=== PATIENT | female | born 1960 | race African-American/Black ===

== ENCOUNTER 2019-04-06 09:44 | Inpatient (IN) | payer OTHER ==
[2019-04-06 12:11] VITALS: BMI 24.6
--- NOTE | 2019-04-06 12:52 | HP ---
CIWA Score Nausea/Vomitin-No Nausea/No Vomiting Muscle Tremors: None Anxiety: 4-Mod. Anxious/Guarded Agitation: 4-Moderately Restless Paroxysmal Sweats: 2 Orientation: 0-Oriented Tacttile Disturbances: 2-Mild Itch/Numbness/Burn Auditory Disturbances: 2-Mild Harshness/Frighten Visual Disturbances: 0-None Headache: 0-None Present CIWA-Ar Total Score: 14 - Admission Criteria OASAS Guidelines: Admission for Medically Managed Detox: Requires at least one of the followin. CIWA greater than 12 2. Seizures within the past 24 hours 3. Delirium tremens within the past 24 hours 4. Hallucinations within the past 24 hours 5. Acute intervention needed for co occurring medical disorder 6. Acute intervention needed for co occurring psychiatric disorder 7. Severe withdrawal that cannot be handled at a lower level of care (continued vomiting, continued diarrhea, abnormal vital signs) requiring intravenous medication and/or fluids 8. Admission ROS S - HPI Allergies/Adverse Reactions: Allergies Allergy/AdvReac Type Severity Reaction Status Date / Time No Known Allergies Allergy Verified 04/06/19 12:01 History of Present Illness: 58 y.o. female pt requesting assistance w/ etoh use , reports 3 x 6-pk beer daily since March 2019 , relapsed after 12 yr sobriety while living in [facility] , moved to [facility] 2 o ago at the request of her adult dtr , now homeless x 3 days " she chose her BF over me " , went to [facility] depression , reports feeling overwhelmed and grieving the loss of family ( mother , brother , SO ) within the last 12 mo . Reports she starts drinking in the mornings, denies tremors , blackouts , seizures . Prior to sobriety - crack cocaine cocaine - current use 3 days ago 100 $/day tobacco - 1 ppd . PMHX : HTN , R THR 2/2 OA , C-sx x 2 , has 3 adult children PSych : depression denies SI / HI hospital d/c received : CXR negative EKG Nl 04/06/19 QTC 415 ms - Ebola screening Have you traveled outside of the country in the last 21 days: No (N) Have you had contact with anyone from an Ebola affected area: No Do you have a fever: No - Review of Systems Constitutional: Loss of Appetite EENT: reports: Other (missing teeth) Respiratory: reports: No Symptoms reported Cardiac: reports: See HPI (went to ER w/ Chest pain , now slightly better) GI: reports: Poor Appetite : reports: No Symptoms Reported Musculoskeletal: reports: Joint Pain (left leg reports h/o muscle " pulled " from lifting SO December 2018 , no surgery recommended , has had numbness , tinglin in the left thigh since , went to [facility] .) Integumentary: reports: No Symptoms Reported Neuro: reports: No Symptoms reported Endocrine: reports: See HPI (borderline DM) Psychiatric: reports: Orientated x3, Agitated, Anxious, Depressed Patient History - Smoking Cessation Smoking history: Current every day smoker Have you smoked in the past 12 months: Yes Hx Chewing Tobacco Use: No Initiated information on smoking cessation: No - Substances abused Crack Substance route: Inhalation Frequency: Daily Amount used: 100 dollars Age of first use: 25 Date of last use: 04/03/19 Alcohol Substance route: Oral Frequency: Daily Amount used: at least 2 of 6 packs of beer. Age of first use: 19 Date of last use: 04/03/19 Family Disease History - Family Disease History Family Disease History: Diabetes: Father (lung CA ), Sister (youngest sister DMI), CA: Father, Mother (stomach CA ), Other: Father, Mother, Brother (d. HTN , esrd on HD ), Sister, Son (1 son A & W ), Daughter (2 dtr A & W ) Admission Physical Exam BHS - Vital Signs Vital Signs: Vital Signs - 24 hr 04/06/19 12:00 Temperature 97.6 F Pulse Rate 75 Respiratory 16 Rate Blood Pressure 187/97 H - Physical General Appearance: Yes: Mild Distress, Anxious HEENTM: Yes: EOMI, Hearing grossly Normal, Normocephalic, Normal Voice, Other ( poor dentition, many missing teeth) Respiratory: Yes: Lungs Clear, Normal Breath Sounds, No Respiratory Distress, No Accessory Muscle Use Neck: Yes: No masses,lesions,Nodules, Trachea in good position Cardiology: Yes: Regular Rhythm, Regular Rate, S1, S2 Abdominal: Yes: Non Tender, Soft Back: Yes: Normal Inspection Musculoskeletal: Yes: Gait Steady Extremities: Yes: Non-Tender Neurological: Yes: Alert, Motor Strength 5/5, Normal Mood/Affect Integumentary: Yes: Warm - Addiitonal Findings: CBC, BMP reviewed - re-ordered 2/2 elevated WBC 12.8 and glucose 258 - Diagnostic (1) Alcohol abuse Current Visit: Yes Status: Acute (2) Cocaine abuse Current Visit: Yes Status: Acute (3) Nicotine dependence Current Visit: Yes Status: Chronic Qualifiers: Nicotine product type: cigarettes Breathalyzer - Breathalyzer Breathalyzer: 0 Urine Drug Screen - Test Device Lot number: [id number] Expiration date: 12/29/20 - Control Is test valid?: Yes - Results Drug screen NEGATIVE: No Urine drug screen results: ROSALEE-Cocaine Inpatient Rehab Admission - Rehab Decision to Admit Inpatient rehab admission?: No
[2019-04-06] MEDS ORDERED: MENTHOL/PHENOL 1 EACH UD MM PRN (14:46)
[2019-04-06] MEDS ORDERED: BISMUTH SUBSALICYLATE 262 MG/15 ML BTL PO PRN (14:46)
[2019-04-06] MEDS ORDERED: MAG HYDROX/AL HYDROX/SIMETH 30 ML UNIT-DOSE CUP PO PRN (14:46)
[2019-04-06] MEDS ORDERED: MAGNESIUM CITRATE 300 ML BOTTLE PO PRN (14:46)
[2019-04-06] MEDS ORDERED: MAGNESIUM HYDROX 2400MG/30ML ORAL SUSPENSION 30 ML CUP PO PRN (14:46)
[2019-04-06] MEDS ORDERED: ACETAMINOPHEN 325 MG TABLET (FP) PO PRN ×2 (14:46)
[2019-04-06] MEDS ORDERED: hydrOXYzine PAMOATE 25 MG CAPSULE (FP) PO PRN (14:46)
[2019-04-06] MEDS ORDERED: chlordiazePOXIDE HCL 10 MG CAPSULE PO PRN (14:48)
[2019-04-06] MEDS: NICOTINE 14 MG/24 HOURS TOPICAL PATCH TD SCH (15:44)
[2019-04-06] MEDS ORDERED: METOPROLOL TARTRATE 25 MG TABLET (FP) PO ONE (16:30)
[2019-04-06] MEDS ORDERED: cloNIDine HCL 0.1 MG TABLET PO PRN (18:12)
[2019-04-06] MEDS: chlordiazePOXIDE HCL 25 MG CAPSULE PO SCH (21:40)
[2019-04-06] MEDS: THIAMINE HCL 100 MG TABLET (FP) PO SCH (21:40)
[2019-04-07] MEDS: chlordiazePOXIDE HCL 25 MG CAPSULE PO SCH ×3 (06:03→22:50)
[2019-04-07] MEDS: INSULIN SLIDING SCALE (NOVOLOG) 1 VIAL SQ SCH ×2 (08:36→17:01)
[2019-04-07 10:24] LABS: BASO % 0.8 % (0-2.0); HEMATOCRIT 38.5 % (32.4-45.2); HEMOGLOBIN 12.6 GM/dL (10.7-15.3); LYMPH % 44.8 % (8-40); MCH 28.3 pg (25.7-33.7); MCHC 32.7 g/dl (32.0-36.0); MEAN CELL VOLUME 86.5 fl (80-96); MEAN PLT VOLUME 9.3 fl (7.5-11.1); MONO % 6.2 % (3.8-10.2); NEUT % 46.2 % (42.8-82.8); PLATELET COUNT 374 K/MM3 (134-434); RBC 4.45 M/mm3 (3.60-5.2); RDW 13.3 % (11.6-15.6); WHITE BLOOD COUNT 8.7 K/mm3 (4.0-10.0)
--- NOTE | 2019-04-07 10:27 | PN ---
S CIWA - CIWA Score Nausea/Vomitin-No Nausea/No Vomiting Muscle Tremors: 2 Anxiety: 3 Agitation: 0-Normal Activity Paroxysmal Sweats: 3 Orientation: 0-Oriented Tacttile Disturbances: 1-Very Mild Itch/Numbness Auditory Disturbances: 0-None Visual Disturbances: 0-None Headache: 2-Mild CIWA-Ar Total Score: 11 BHS Progress Note (SOAP) Subjective: c/o sweats, anxiety, and headache. Objective: 04/07/19 10:29 Vital Signs 04/07/19 04/07/19 04/07/19 03:30 06:00 06:30 Temperature 97.2 F L Pulse Rate 57 L Respiratory 18 18 18 Rate Blood Pressure 122/68 04/07/19 08:54 Temperature 97.8 F Pulse Rate 67 Respiratory 18 Rate Blood Pressure 121/71 Labs pending. Assessment: 04/07/19 10:29 AOX3, in no acute distress. Full ROM, ambulating in the unit. Withdrawal symptoms. Plan: continue detox.
[2019-04-07 10:29] LABS: BILIRUBIN,TOTAL 0.3 mg/dL (0.2-1); BLOOD UREA NITROGEN 12.2 mg/dL (7-18); CALCIUM 8.8 mg/dL (8.5-10.1); POTASSIUM 4.1 mmol/L (3.5-5.1); TOT PROT 5.7 g/dl (6.4-8.2)
[2019-04-07] MEDS: PRENATAL VITAMINS W/ FOLIC ACID TABLET (FP) PO SCH (11:05)
[2019-04-07] MEDS: NICOTINE 14 MG/24 HOURS TOPICAL PATCH TD SCH (11:07)
--- NOTE | 2019-04-07 16:25 | CONSULT ---
[facility] Psychiatric Consult - Data Date of interview: 04/07/19 Admission source: [facility] Identifying data: First admission to [facility] for this 58 y/o female self-referred for detoxification (alcohol, cocaine). Interviewed at [address] [place] [address]. Patient is single, mother of three, homeless, unemployed and supported on SSI benefits. Substance Abuse History: Discussed with the patient. Details in current [facility] report as follows : Smoking history: Current every day smoker. Have you smoked in the past 12 months: Yes. Hx Chewing Tobacco Use: No. Initiated information on smoking cessation: No. - Substances abused. Crack. Substance route: Inhalation. Frequency: Daily. Amount used: 100 dollars. Age of first use: 25. Date of last use: 04/03/19. Alcohol. Substance route: Oral. Frequency : Daily. Amount used: at least 2 of 6 packs of beer. Age of first use: 19. Date of last use: 04/03/19 Medical History: Remarkable for hypertension, diabetes mellitus (questionable historian), recent hip replacement (right) and a history of two sections. Psychiatric History: Patient denies history of psychiatric hospitalizations, OPD care or suicide attempts. Physical/Sexual Abuse/Trauma History: No reported history of abuse. Patient reports dysphoria from going through multiple losses in the family (deaths of mother, a brother, common-law ) in a relatively short period of time. Common-law spouse passed in January 2019 from cancer. Additional Comment: Urine drug screen results: ROSALEE-Cocaine. Noted. Mental Status Exam - Mental Status Exam Alert and Oriented to: Time, Place, Person Cognitive Function: Good Patient Appearance: Well Groomed (missing teeth) Mood: Sad, Withdrawn Affect: Mood Congruent, Constricted Patient Behavior: Fatigued, Cooperative Speech Pattern: Clear, Appropriate Voice Loudness: Normal Thought Process: Goal Oriented Thought Disorder: Not Present Hallucinations: Denies Suicidal Ideation: Denies Homicidal Ideation: Denies Insight/Judgement: Fair Sleep: Poorly, Difficulty falling asleep Appetite: Fair Gait/Station: Normal Psychiatric Findings - Problem List ([place] 1, 2,3) (1) Bereavement Current Visit: Yes Status: Chronic (2) Alcohol abuse Current Visit: Yes Status: Chronic (3) Cocaine abuse Current Visit: Yes Status: Chronic (4) Nicotine dependence Current Visit: Yes Status: Chronic Qualifiers: Nicotine product type: cigarettes (5) Substance induced mood disorder Current Visit: Yes Status: Chronic (6) Insomnia Current Visit: Yes Status: Acute - Initial Treatment Plan Initial Treatment Plan: Psychoeducation. Support. Counseling. Detoxification. Insomnia is addressed with melatonin at bedtime (patient agrees). Empathy provided. Observation.
[2019-04-07] MEDS ORDERED: INSULIN SLIDING SCALE (NOVOLOG) 1 VIAL SQ ONE (16:37)
[2019-04-07] MEDS: THIAMINE HCL 100 MG TABLET (FP) PO SCH (22:50)
[2019-04-08] MEDS: chlordiazePOXIDE 5 MG CAPSULE PO SCH ×3 (05:40→22:12)
[2019-04-08] MEDS: INSULIN SLIDING SCALE (NOVOLOG) 1 VIAL SQ SCH ×2 (06:45→17:20)
[2019-04-08] MEDS: NICOTINE 14 MG/24 HOURS TOPICAL PATCH TD SCH (10:28)
[2019-04-08] MEDS: PRENATAL VITAMINS W/ FOLIC ACID TABLET (FP) PO SCH (10:28)
--- NOTE | 2019-04-08 11:32 | PN ---
S CIWA - CIWA Score Nausea/Vomitin-Mild Nausea/No Vomiting Muscle Tremors: 2 Anxiety: 2 Agitation: 2 Paroxysmal Sweats: 2 Orientation: 0-Oriented Tacttile Disturbances: 0-None Auditory Disturbances: 0-None Visual Disturbances: 0-None Headache: 0-None Present CIWA-Ar Total Score: 9 BHS Progress Note (SOAP) Subjective: Medication working well as per patient, refused to elaborate regarding sxs Objective: 04/08/19 11:28 Last Vital Signs Temp Pulse Resp BP Pulse Ox 97.7 F 68 18 149/88 04/08/19 09:24 04/08/19 09:24 04/08/19 09:24 04/08/19 09:24 Elevated b/p 149/88 (has htn, on clonidine prn) Laboratory Tests 04/07/19 04/07/19 04/07/19 08:00 08:00 08:00 WBC 8.7 RBC 4.45 Hgb 12.6 Hct 38.5 MCV 86.5 MCH 28.3 MCHC 32.7 RDW 13.3 Plt Count 374 MPV 9.3 Absolute Neuts (auto) 4.0 Neutrophils % 46.2 Lymphocytes % 44.8 H Monocytes % 6.2 Eosinophils % 2.0 Basophils % 0.8 Nucleated RBC % 0 Sodium 141 Potassium 4.1 Chloride 102 Carbon Dioxide 27 Anion Gap 12 BUN 12.2 Creatinine 1.0 Est GFR (CKD-EPI)AfAm 72.93 Est GFR (CKD-EPI)NonAf 62.93 POC Glucometer Random Glucose 422 H* Calcium 8.8 Total Bilirubin 0.3 AST 55 H ALT 76 H Alkaline Phosphatase 101 Total Protein 5.7 L Albumin 3.0 L RPR Titer Nonreactive 04/07/19 04/08/19 16:31 06:23 WBC RBC Hgb Hct MCV MCH MCHC RDW Plt Count MPV Absolute Neuts (auto) Neutrophils % Lymphocytes % Monocytes % Eosinophils % Basophils % Nucleated RBC % Sodium Potassium Chloride Carbon Dioxide Anion Gap BUN Creatinine Est GFR (CKD-EPI)AfAm Est GFR (CKD-EPI)NonAf POC Glucometer 359 330 Random Glucose Calcium Total Bilirubin AST ALT Alkaline Phosphatase Total Protein Albumin RPR Titer Labs reviewed: elevated glucose level (has DM), mildly elevated AST/ALT Assessment: 04/08/19 11:35 Withdrawal sxs Noted with elevated glucose level r/t DM and HTN Plan: Continue detox Encouraged PO water intake DM with hyperglycemia: monitor fingerstick glucose, continue insulin, encourage diabetic diet HTN: start norvasc 5mg PO daily, continue clonidine if b/p > 140/90 Mildly elevated AST/ALT: most likely r/t alcoholism, encouraged abstinence from alcohol and all illicit substances, follow up with PCP for monitoring
[2019-04-08] MEDS: THIAMINE HCL 100 MG TABLET (FP) PO SCH (22:12)
[2019-04-08] MEDS: MELATONIN 5 MG TABLETS PO PRN (22:12)
[2019-04-08] MEDS: IBUPROFEN 400 MG TABLET (FP) PO PRN (22:14)
[2019-04-09] MEDS ORDERED: chlordiazePOXIDE HCL 10 MG CAPSULE PO PRN
[2019-04-09] MEDS: chlordiazePOXIDE HCL 10 MG CAPSULE PO SCH ×3 (07:15→22:10)
[2019-04-09] MEDS: INSULIN SLIDING SCALE (NOVOLOG) 1 VIAL SQ SCH ×2 (07:18→17:00)
[2019-04-09] MEDS ORDERED: INSULIN SLIDING SCALE (NOVOLOG) 1 VIAL SQ ONE ×2 (07:19→16:56)
--- NOTE | 2019-04-09 10:10 | PN ---
S CIWA - CIWA Score Nausea/Vomitin-No Nausea/No Vomiting Muscle Tremors: 1-None Visible, but [place] Anxiety: 1-Mildly Anxious Agitation: 1-Slight > Activity Paroxysmal Sweats: No Perspiration Orientation: 0-Oriented Tacttile Disturbances: 0-None Auditory Disturbances: 0-None Visual Disturbances: 0-None Headache: 0-None Present CIWA-Ar Total Score: 3 BHS Progress Note (SOAP) Subjective: Patient has minimal complaints. She is doing well and wants to follow up and go to rehab once she completes detox. Objective: 04/09/19 10:06 BP:143/71 P:71 R:18 T:96.8 Laboratory 04/07/19 04/07/19 04/07/19 08:00 08:00 08:00 WBC 8.7 K/mm3 K/mm3 (4.0-10.0) RBC 4.45 M/mm3 M/mm3 (3.60-5.2) Hgb 12.6 GM/dL GM/dL (10.7-15.3) Hct 38.5 % % (32.4-45.2) MCV 86.5 fl fl (80-96) MCH 28.3 pg pg (25.7-33.7) MCHC 32.7 g/dl g/dl (32.0-36.0) RDW 13.3 % % (11.6-15.6) Plt Count 374 K/MM3 K/MM3 (134-434) MPV 9.3 fl fl (7.5-11.1) Absolute Neuts (auto) 4.0 K/mm3 K/mm3 (1.5-8.0) Neutrophils % 46.2 % % (42.8-82.8) Lymphocytes % 44.8 % H % (8-40) Monocytes % 6.2 % % (3.8-10.2) Eosinophils % 2.0 % % (0-4.5) Basophils % 0.8 % % (0-2.0) Nucleated RBC % 0 % % (0-0) Sodium 141 mmol/L mmol/L (136-145) Potassium 4.1 mmol/L mmol/L (3.5-5.1) Chloride 102 mmol/L mmol/L (98-107) Carbon Dioxide 27 mmol/L mmol/L (21-32) Anion Gap 12 MMOL/L MMOL/L (8-16) BUN 12.2 mg/dL mg/dL (7-18) Creatinine 1.0 mg/dL mg/dL (0.55-1.3) Est GFR (CKD-EPI)AfAm 72.93 Est GFR (CKD-EPI)NonAf 62.93 POC Glucometer Random Glucose 422 mg/dL H* mg/dL (74-106) Calcium 8.8 mg/dL mg/dL (8.5-10.1) Total Bilirubin 0.3 mg/dL mg/dL (0.2-1) AST 55 U/L H U/L (15-37) ALT 76 U/L H U/L (13-61) Alkaline Phosphatase 101 U/L U/L (45-117) Total Protein 5.7 g/dl L g/dl (6.4-8.2) Albumin 3.0 g/dl L g/dl (3.4-5.0) RPR Titer Nonreactive (NONREACTIVE) 04/07/19 04/08/19 04/08/19 16:31 06:23 16:38 WBC RBC Hgb Hct MCV MCH MCHC RDW Plt Count MPV Absolute Neuts (auto) Neutrophils % Lymphocytes % Monocytes % Eosinophils % Basophils % Nucleated RBC % Sodium Potassium Chloride Carbon Dioxide Anion Gap BUN Creatinine Est GFR (CKD-EPI)AfAm Est GFR (CKD-EPI)NonAf POC Glucometer 359 UNITS UNITS 330 UNITS UNITS 410 UNITS UNITS (80-120) (80-120) (80-120) Random Glucose Calcium Total Bilirubin AST ALT Alkaline Phosphatase Total Protein Albumin RPR Titer 04/08/19 04/09/19 19:50 07:14 WBC RBC Hgb Hct MCV MCH MCHC RDW Plt Count MPV Absolute Neuts (auto) Neutrophils % Lymphocytes % Monocytes % Eosinophils % Basophils % Nucleated RBC % Sodium Potassium Chloride Carbon Dioxide Anion Gap BUN Creatinine Est GFR (CKD-EPI)AfAm Est GFR (CKD-EPI)NonAf POC Glucometer 134 UNITS UNITS 277 UNITS UNITS (80-120) (80-120) Random Glucose Calcium Total Bilirubin AST ALT Alkaline Phosphatase Total Protein Albumin RPR Titer Assessment: 04/09/19 10:07 1. Alcohol Dependence with uncomplicated withdrawals. 2. Hyperglycemia 3. Elevated LFT's Plan: 1. Patient encouraged to complete detox protocol. Encourage to increase po fluids. 2. Hyperglycemia without history of diabetes. Repeat a fasting glucose. 3. Abnormal LFt's This is consistent with alcohol dependence. Patient educated about alcoholic liver damages and consequences of cirrhosis and liver failure.
[2019-04-09] MEDS: amLODIPine BESYLATE 5 MG TABLET (FP) PO SCH (10:47)
[2019-04-09] MEDS: NICOTINE 14 MG/24 HOURS TOPICAL PATCH TD SCH (10:47)
[2019-04-09] MEDS: PRENATAL VITAMINS W/ FOLIC ACID TABLET (FP) PO SCH (10:47)
[2019-04-09] MEDS: IBUPROFEN 400 MG TABLET (FP) PO PRN (20:17)
[2019-04-09] MEDS: THIAMINE HCL 100 MG TABLET (FP) PO SCH (22:10)
[2019-04-09] MEDS: MELATONIN 5 MG TABLETS PO PRN (22:11)
[2019-04-10] MEDS ORDERED: chlordiazePOXIDE HCL 10 MG CAPSULE PO ONE (05:00)
[2019-04-10] MEDS: INSULIN SLIDING SCALE (NOVOLOG) 1 VIAL SQ SCH (06:07)
[2019-04-10] MEDS ORDERED: INSULIN SLIDING SCALE (NOVOLOG) 1 VIAL SQ ONE (06:07)
--- NOTE | 2019-04-10 08:40 | DS ---
[facility] Detox Discharge Summary Admission Date: 04/06/19 Discharge Date: 04/10/19 - History Present History: Alcohol Dependence, Cocaine Dependence - Physical Exam Results Vital Signs: Vital Signs Temperature 97.3 F L 04/10/19 06:37 Pulse Rate 66 04/10/19 06:37 Respiratory Rate 18 04/10/19 06:37 Blood Pressure 133/66 04/10/19 06:37 O2 Sat by Pulse Oximetry (%) Pertinent Admission Physical Exam Findings: [facility] Laboratory Tests 04/07/19 04/07/19 04/07/19 08:00 08:00 08:00 WBC 8.7 RBC 4.45 Hgb 12.6 Hct 38.5 MCV 86.5 MCH 28.3 MCHC 32.7 RDW 13.3 Plt Count 374 MPV 9.3 Absolute Neuts (auto) 4.0 Neutrophils % 46.2 Lymphocytes % 44.8 H Monocytes % 6.2 Eosinophils % 2.0 Basophils % 0.8 Nucleated RBC % 0 Sodium 141 Potassium 4.1 Chloride 102 Carbon Dioxide 27 Anion Gap 12 BUN 12.2 Creatinine 1.0 Est GFR (CKD-EPI)AfAm 72.93 Est GFR (CKD-EPI)NonAf 62.93 POC Glucometer Random Glucose 422 H* Calcium 8.8 Total Bilirubin 0.3 AST 55 H ALT 76 H Alkaline Phosphatase 101 Total Protein 5.7 L Albumin 3.0 L RPR Titer Nonreactive 04/07/19 04/08/19 04/08/19 16:31 06:23 16:38 WBC RBC Hgb Hct MCV MCH MCHC RDW Plt Count MPV Absolute Neuts (auto) Neutrophils % Lymphocytes % Monocytes % Eosinophils % Basophils % Nucleated RBC % Sodium Potassium Chloride Carbon Dioxide Anion Gap BUN Creatinine Est GFR (CKD-EPI)AfAm Est GFR (CKD-EPI)NonAf POC Glucometer 359 330 410 Random Glucose Calcium Total Bilirubin AST ALT Alkaline Phosphatase Total Protein Albumin RPR Titer 04/08/19 04/09/19 04/09/19 19:50 07:14 16:30 WBC RBC Hgb Hct MCV MCH MCHC RDW Plt Count MPV Absolute Neuts (auto) Neutrophils % Lymphocytes % Monocytes % Eosinophils % Basophils % Nucleated RBC % Sodium Potassium Chloride Carbon Dioxide Anion Gap BUN Creatinine Est GFR (CKD-EPI)AfAm Est GFR (CKD-EPI)NonAf POC Glucometer 134 277 459 Random Glucose Calcium Total Bilirubin AST ALT Alkaline Phosphatase Total Protein Albumin RPR Titer 04/10/19 05:55 WBC RBC Hgb Hct MCV MCH MCHC RDW Plt Count MPV Absolute Neuts (auto) Neutrophils % Lymphocytes % Monocytes % Eosinophils % Basophils % Nucleated RBC % Sodium Potassium Chloride Carbon Dioxide Anion Gap BUN Creatinine Est GFR (CKD-EPI)AfAm Est GFR (CKD-EPI)NonAf POC Glucometer 305 Random Glucose Calcium Total Bilirubin AST ALT Alkaline Phosphatase Total Protein Albumin RPR Titer today pt is feeling better no s/s of withdrawals no acute distress - Treatment Hospital Course: Detox Protocol Followed, Detoxed Safely, Responded well, Discharged Condition Good, Rehab Referral Accepted Patient has Accepted a Rehab Referral to: referred to [facility] inpatient rehab - Medication Discharge Medications: Ambulatory Orders NK [No Known Home Medication] 04/06/19 - Diagnosis (1) Insomnia Current Visit: Yes Status: Acute Qualifiers: Insomnia type: unspecified Qualified Code(s): G47.00 - Insomnia, unspecified (2) Alcohol abuse Current Visit: Yes Status: Chronic (3) Bereavement Current Visit: Yes Status: Chronic (4) Cocaine abuse Current Visit: Yes Status: Chronic (5) Nicotine dependence Current Visit: Yes Status: Chronic Qualifiers: Nicotine product type: cigarettes Substance use status: uncomplicated Qualified Code(s): F17.210 - Nicotine dependence, cigarettes, uncomplicated (6) Substance induced mood disorder Current Visit: Yes Status: Chronic - AMA Did Patient Leave Against Medical Advice: No
[2019-04-10 09:33] VITALS: BP 131/81; PULSE 84; TEMP 97.6
[2019-04-10] MEDS: amLODIPine BESYLATE 5 MG TABLET (FP) PO SCH (10:02)
[2019-04-10] MEDS: PRENATAL VITAMINS W/ FOLIC ACID TABLET (FP) PO SCH (10:02)
[2019-04-10] MEDS: NICOTINE 14 MG/24 HOURS TOPICAL PATCH TD SCH (10:03)
== END 2019-04-10 11:42 | disposition home or self-care (01) | DRG 774 ==
LOC: YASAS 09:44 → Y6N 15:17
PROVIDERS: ADMIT Surgery; ATTEND Surgery
PROC: HZ2ZZZZ Detoxification Services for Substance Abuse Treatment (ICD-10-PCS; principal; 2019-04-06)
DX: F10.230 Alcohol dependence with withdrawal, uncomplicated (principal); F14.20 Cocaine dependence, uncomplicated; F17.210 Nicotine dependence, cigarettes, uncomplicated; F19.24 Other psychoactive substance dependence with psychoactive substance-induced mood disorder; I10 Essential (primary) hypertension; E11.65 Type 2 diabetes mellitus with hyperglycemia; Z79.4 Long term (current) use of insulin; G47.00 Insomnia, unspecified; R94.5 Abnormal results of liver function studies; Z63.4 Disappearance and death of family member
CPT/HCPCS: 36415; 80053; 82947; 82962; 85025; 86593; J0735